=== PATIENT | female | born 1985 | race African-American/Black ===

== ENCOUNTER 2022-10-10 08:44 | Emergency (ER) | payer OTHER, SELFPAY ==
--- NOTE | ~2022-10-10 | XR_ITS ---
XR abdomen/kub 1V DATE: 10/10/2022 09:33 INDICATION: Nausea, vomiting, diarrhea TECHNIQUE: 2 supine AP views COMPARISON: None FINDINGS: The bowel gas pattern is nonspecific, without evidence of obstruction. There are several no ndilated gas containing small bowel segments overlying the left midabdomen, which might be due to mil d adynamic ileus or gastroenteritis. No visceromegaly or abnormal calcification is noted. IUD overlies the pelvis. Transitional lumbosacral vertebra. Mild levoscoliosis of the thoracolumbar spine. IMPRESSION: Nonspecific abdomen Reviewed, dictated and finalized at [facility]. Reviewed, dictated and finalized at [facility]. IMPRESSION: Nonspecific abdomen
--- NOTE | 2022-10-10 08:46 | ED.ABDPAIN ---
HPI - Abdominal Pain General Chief Complaint: Nausea/Vomiting/Diarrhea Stated Complaint: abd pain/weakness Time Seen by Provider: 10/10/22 08:46 Source: patient Mode of arrival: ambulatory Limitations: no limitations History of Present Illness HPI narrative: Klarissa is a 37-year-old female patient presenting to the clinic today with complaints of weakness, nausea, vomiting, diarrhea, and abdominal cramping x1 day. She reports symptoms began last night. States she has been having some chills and body aches without fever. Has vomited 2-3 times within the last 45 minutes and has had 3 diarrhea stools this morning. Denies sore throat, urinary symptoms, bloating, or blood in her stool. No history of constipation. No one else at home is sick currently. No known exposure to anyone with COVID, flu, or strep. Related Data Home Medications Medication Instructions Recorded Confirmed duloxetine 60 mg capsule,delayed 60 mg PO DIRECTED 10/10/22 10/10/22 release eszopiclone 3 mg tablet 3 mg PO DIRECTED 10/10/22 10/10/22 telmisartan 80 mg tablet 80 mg PO DIRECTED 10/10/22 10/10/22 valacyclovir 500 mg tablet 500 mg PO DIRECTED 10/10/22 10/10/22 Allergies Allergy/AdvReac Type Severity Reaction Status Date / Time No Known Allergies Allergy Verified 10/10/22 09:10 Review of Systems Review of Systems: Pertinent positives per HPI. Patient denies any fever, rash, headache, visual changes, dizziness, cough, runny nose, sore throat, shortness of breath, chest pain, palpitations, constipation, or any urinary issues. PMFSH Comments At the time of my signature, I reviewed and agree with the nursing past medical, surgical, social, and family history. There is no relevant family history pertinent to the patient complaint. Exam Narrative: General: Well-developed, obese, in no apparent distress Head: Normocephalic, atraumatic Eyes: Pupils equally round and reactive to light bilaterally, EOM intact, sclera and conjunctive clear, no discharge, lids normal Ears: TMs intact and clear, ear canals clear, no drainage, grossly hearing normal. Nose: Nares patent, no discharge, no inflammation, no sinus tenderness. Mouth: Oropharynx without lesions or masses, good dentition, MMM. Neck: Supple, trachea midline, no enlargement of anterior or posterior cervical nodes, no thyroid masses or goiter palpable. Cardio: Regular rate and rhythm, s1 and s2 normal, no murmur appreciated. Resp: Clear to auscultation bilaterally anteriorly and posteriorly, no rhonchi, rales, wheezing or rubs Abdomen: Soft, pliable, bowel sounds present in all quadrants, tender to palpation over the left and right upper quadrants, no organomegly, no CVAT tenderness. Course Course Emergency Course: Portions of this record may have been created with voice recognition software. Level of Care: Express Care Visit Vital Signs Vital signs: Vital Signs Temperature 36.1 C L 10/10/22 09:19 Pulse Rate 60 10/10/22 09:19 Respiratory Rate 16 10/10/22 09:19 Blood Pressure 157/79 H 10/10/22 09:19 Pulse Oximetry 100 10/10/22 09:19 Oxygen Delivery Room Air 10/10/22 09:19 Temperature 36.1 C L 10/10/22 09:19 Pulse Rate 60 10/10/22 09:19 Respiratory Rate 16 10/10/22 09:19 Blood Pressure 157/79 H 10/10/22 09:19 Pulse Oximetry 100 10/10/22 09:19 Oxygen Delivery Room Air 10/10/22 09:19 Vital signs reviewed MDM - Abdominal Pain MDM Narrative Medical decision making narrative: At the time of the patient is laying on the exam table tearful due to pain. Rates pain currently a 7 at 10. Influenza testing was obtained was negative in the clinic. Abdominal x-ray was performed and shows that patient likely has gastroenteritis versus a dynamic ileus. I suspect patient has gastroenteritis due to her symptomology. 4 mg of Zofran was given in the clinic and this helped patient's discomfort and nausea. Will send in prescription for hyoscyamine a
[2022-10-10 09:19] VITALS: BP 157/79; PULSE 60; RESP 16; TEMP 36.1; O2SAT 100
[2022-10-10] MEDS: ONDANSETRON HCL ODT 4 MG TABLET SUBLINGUAL (09:19)
== END 2022-10-10 10:05 | disposition home or self-care (01) ==
PROVIDERS: Emergency Provider Nurse Practitioner Family; PCP Family Medicine
DX: K52.9 Noninfective gastroenteritis and colitis, unspecified (principal); I10 Essential (primary) hypertension
CPT/HCPCS: 74018; 87804; 99203; A9270; G0463